=== PATIENT | female | born 1935 | race Caucasian/White ===

== ENCOUNTER → 2017-05-17 | Outpatient (CLI) | payer OTHER, MEDICARE | END | disposition home or self-care (01) | LOC: MA 08:25 | PROC: BH02ZZZ Plain Radiography of Bilateral Breasts (ICD-10-PCS; principal; 2017-05-17) | DX: Z12.39 Encounter for other screening for malignant neoplasm of breast (principal) | CPT/HCPCS: 77067 ==

== ENCOUNTER 2017-05-28 03:13 | Emergency (ER) | payer OTHER, MEDICARE ==
[~2017-05-28] VITALS: Ht 157.5 cm; Wt 76.2 kg
[2017-05-28 03:20] VITALS: Ht 157.5 cm; Wt 76.2 kg
[2017-05-28 04:40] LABS: microscopic required? NO
[2017-05-28 05:01] LABS: UA SPECIFIC GRAVITY 1.015 (1.005-1.035); urine erythrocyte NEGATIVE (NEGATIVE)
[2017-05-28 05:30] VITALS: BP 133/66
== END 2017-05-28 05:30 | disposition home or self-care (01) ==
LOC: ED 03:13
PROVIDERS: Emergency Medicine
DX: K52.89 Other specified noninfective gastroenteritis and colitis (principal); K59.00 Constipation, unspecified; I10 Essential (primary) hypertension; E78.00 Pure hypercholesterolemia, unspecified; R10.30 Lower abdominal pain, unspecified

== ENCOUNTER 2018-03-21 07:20 | Inpatient (IN) | payer OTHER, MEDICARE ==
[~2018-03-21] VITALS: Ht 157.5 cm; Wt 78.9 kg
[2018-03-21 07:35] VITALS: Ht 157.5 cm; Wt 78.9 kg
[2018-03-21 08:36] LABS: PLATELET COUNT 269 x10^3mcL (130-400); RED CELL DISTRIBUTION WIDTH 13.4 % (11.5-14.5)
[2018-03-21 08:40] LABS: CALCIUM 8.6 mg/dL (8.5-10.1); CHLORIDE SERUM 101 mmol/L (98-107); CREATININE SERUM 0.7 mg/dL (0.6-1.0); GLUCOSE SERUM 150 mg/dL (74-106); POTASSIUM SERUM 3.8 mmol/L (3.5-5.1); SODIUM SERUM 135 mmol/L (136-145)
[2018-03-21 08:45] LABS: ALKALINE PHOSPHATASE 60 U/L (46-116); ALT/SGPT 36 U/L (14-59); AST/SGOT 41 U/L (15-37); BILIRUBIN TOTAL 0.74 mg/dL (0.20-1.00); TOTAL PROTEIN, SERUM 7.1 g/dL (6.4-8.2)
[2018-03-21 08:50] LABS: UA SPECIFIC GRAVITY 1.025 (1.005-1.035); microscopic required? YES; urine erythrocyte TRACE (NEGATIVE)
[2018-03-21 08:52] LABS: ALBUMIN 3.2 g/dL (3.4-5.0)
[2018-03-21 09:15] LABS: BAND NEUTROPHIL 4 % (0-10); BASOPHIL 0 % (0-2); MONOCYTE 3 % (0-7); PLATELET MORPHOLOGY PLATELETS NORMAL; SEGMENTED NEUTROPHILS 88 % (37-75)
[2018-03-21] MEDS ORDERED: TRICOR48 M1 PO (10:09)
[2018-03-21] MEDS ORDERED: BENAZEPRIL HYDR20 M1 PO (10:10)
[2018-03-21] MEDS ORDERED: EVISTA60 MG PO (10:10)
[2018-03-21] MEDS ORDERED: PRAVACHOL20 MG PO (10:10)
[2018-03-21] MEDS ORDERED: MULTI-VITAMINS1 TAB PO (10:11)
[2018-03-21] MEDS ORDERED: TOPROL XL50 MG PO (10:11)
[2018-03-21 10:56] VITALS: BP 126/54
[2018-03-21 16:33] VITALS: BP 118/52
[2018-03-21 20:57] VITALS: BP 121/50
[2018-03-22 05:13] VITALS: BP 147/69
[2018-03-22 07:57] VITALS: BP 135/57
[2018-03-22 18:09] VITALS: BP 125/50
[2018-03-22 20:27] VITALS: BP 120/40
[2018-03-23 05:31] VITALS: BP 123/47
[2018-03-23 06:54] LABS: BASOPHIL % 0.3 % (0-2); PLATELET COUNT 283 x10^3mcL (130-400); RED CELL DISTRIBUTION WIDTH 13.6 % (11.5-14.5)
[2018-03-23 07:03] LABS: CALCIUM 8.9 mg/dL (8.5-10.1); CARBON DIOXIDE 20.1 mmol/L (21-32); CHLORIDE SERUM 104 mmol/L (98-107); CREATININE SERUM 0.7 mg/dL (0.6-1.0); GLUCOSE SERUM 124 mg/dL (74-106); POTASSIUM SERUM 4.1 mmol/L (3.5-5.1); SODIUM SERUM 137 mmol/L (136-145)
[2018-03-23 09:10] VITALS: BP 138/55
[2018-03-23 14:19] VITALS: BP 138/55
[2018-03-23] MEDS ORDERED: LEVAQUIN750 MG PO (14:30)
== END 2018-03-23 15:06 | disposition home or self-care (01) | DRG 690 ==
LOC: ED 07:20 → MU 09:54 → ED 10:20 → MU 10:20
PROVIDERS: Emergency Medicine; ADMIT Internal Medicine
DX: N39.0 Urinary tract infection, site not specified (principal); I10 Essential (primary) hypertension; K21.9 Gastro-esophageal reflux disease without esophagitis; E78.5 Hyperlipidemia, unspecified; M19.90 Unspecified osteoarthritis, unspecified site; Z68.31 Body mass index [BMI] 31.0-31.9, adult
CPT/HCPCS: 83880; 87804; 97110-GP; 97116-GP; J1885; J1956; J7030; J7040; Q0092

== ENCOUNTER → 2018-05-20 | Outpatient (CLI) | payer OTHER, MEDICARE ==
[~2018-05-20] MED LIST: BENAZEPRIL HYDR20 M1 PO; EVISTA60 MG PO; LEVAQUIN750 MG PO; MULTI-VITAMINS1 TAB PO; PRAVACHOL20 MG PO; TOPROL XL50 MG PO; TRICOR48 M1 PO
== END | disposition home or self-care (01) ==
LOC: MA 08:38
PROC: BH02ZZZ Plain Radiography of Bilateral Breasts (ICD-10-PCS; principal; 2018-05-20)
DX: Z12.31 Encounter for screening mammogram for malignant neoplasm of breast (principal)
CPT/HCPCS: 77067

== ENCOUNTER → 2018-06-04 | Outpatient (CLI) | payer OTHER, MEDICARE | END | disposition home or self-care (01) | LOC: US 08:33 | PROC: BT43ZZZ Ultrasonography of Bilateral Kidneys (ICD-10-PCS; principal; 2018-06-04) | DX: N30.20 Other chronic cystitis without hematuria (principal) ==

== ENCOUNTER 2019-04-06 06:53 | Emergency (ER) | payer OTHER, MEDICARE ==
[~2019-04-06] VITALS: Ht 157.5 cm; Wt 79.1 kg
[2019-04-06 06:56] VITALS: BP 185/72
== END 2019-04-06 08:15 | disposition home or self-care (01) ==
LOC: ED 06:53
DX: G50.0 Trigeminal neuralgia (principal); K21.9 Gastro-esophageal reflux disease without esophagitis; M19.90 Unspecified osteoarthritis, unspecified site; I10 Essential (primary) hypertension; Z90.49 Acquired absence of other specified parts of digestive tract; Z90.89 Acquired absence of other organs; Z90.710 Acquired absence of both cervix and uterus; Z88.5 Allergy status to narcotic agent

== ENCOUNTER → 2019-05-15 | Outpatient (CLI) | payer OTHER, MEDICARE ==
[2019-05-15 09:10] LABS: ALBUMIN 3.5 g/dL (3.4-5.0); ALKALINE PHOSPHATASE 64 U/L (46-116); ALT/SGPT 21 U/L (14-59); AST/SGOT 17 U/L (15-37); BILIRUBIN TOTAL 0.3 mg/dL (0.20-1.00); CALCIUM 8.4 mg/dL (8.5-10.1); CARBON DIOXIDE 28.3 mmol/L (21-32); CHLORIDE SERUM 103 mmol/L (98-107); CREATININE SERUM 0.6 mg/dL (0.6-1.0); GLUCOSE SERUM 104 mg/dL (74-106); POTASSIUM SERUM 4.2 mmol/L (3.5-5.1); SODIUM SERUM 139 mmol/L (136-145); TOTAL PROTEIN, SERUM 7.3 g/dL (6.4-8.2)
== END | disposition home or self-care (01) ==
LOC: LB 07:51
DX: R41.3 Other amnesia (principal)
CPT/HCPCS: 84425